=== PATIENT | male | born 1965 | race Caucasian/White ===

== ENCOUNTER 2017-05-11 05:25 | Inpatient (IN) | payer MEDICAID ==
[~2017-05-11] VITALS: Ht 175.3 cm; Wt 82.6 kg
[~2017-05-11 05:25] MED LIST: CITA20TA9 PO; LEVO100 PO; MVITFE PO; PHEN100C23 PO; RISP1 PO; SIMV-261 PO
[2017-05-11 09:53] VITALS: BP 156/96
[2017-05-11] MEDS ORDERED: HALOPERIDOL 5 MG TABLET PO PRN (10:00)
[2017-05-11] MEDS ORDERED: LORazepam 2 MG TABLET PO PRN (10:00)
[2017-05-11 10:35] VITALS: BP 124/94
[2017-05-11] MEDS: NICOTINE 21 MG/24 HOUR PATCH TD SCH (12:20)
[2017-05-11 16:36] VITALS: BP 116/85
[2017-05-11] MEDS ORDERED: PHENYTOIN SODIUM 100 MG ER CAPSULE PO SCH (17:00)
[2017-05-11] MEDS: LevETIRAcetam 500 MG TABLET PO SCH (18:18)
[2017-05-11] MEDS: ZOLPIDEM TARTRATE 10 MG TABLET PO PRN (20:23)
[2017-05-12 02:30] VITALS: BP 127/87
[2017-05-12] MEDS ORDERED: INFLUENZA VIRUS VACCINE QVS 2017-18 (3YR+)/PF 60 MCG/0.5 ML SYRINGE IM ONE (03:00)
[2017-05-12] MEDS ORDERED: PNEUMOCOCCAL VACCINE POLYVALENT 0.5 ML VIAL [PPSV23] IM ONE (03:00)
[2017-05-12] MEDS: LEVOTHYROXINE SODIUM 100 MCG TABLET PO SCH (06:37)
[2017-05-12] MEDS: LevETIRAcetam 500 MG TABLET PO SCH ×2 (08:01→16:21)
[2017-05-12] MEDS: NICOTINE 21 MG/24 HOUR PATCH TD SCH (08:01)
[2017-05-12 08:38] LABS: BASOPHILS % (AUTO) 0.5 % (0.0-2.0); EOSINOPHILS % (AUTO) 3.5 % (1.0-6.0); HEMATOCRIT 37.4 % (41-53); HEMOGLOBIN 13.3 g/dL (13.5-17.5); LYMPHOCYTES % (AUTO) 40.8 % (22.0-44.0); MEAN CORPUSCULAR HEMOGLOBIN 33.7 pg (26.0-34.0); MEAN CORPUSCULAR HGB CONC 35.5 G/dL (31.0-37.0); MEAN CORPUSCULAR VOLUME 95 fL (80-100); MONOCYTES # (AUTO) 0.3 K/uL (0.1-1.0); MONOCYTES % (AUTO) 5.5 % (2.0-9.0); NEUTROPHILS # (AUTO) 2.4 K/uL (1.8-7.7); NEUTROPHILS % (AUTO) 49.7 % (40.0-70.0); PLATELET COUNT (AUTO) 223 K/uL (150-450); RED BLOOD CELL COUNT(AUTO) 3.94 MIL/uL (4.50-5.90); RED CELL DISTRIBUTION WIDTH 14.9 % (11.5-14.5)
[2017-05-12 09:06] VITALS: BP 122/80
[2017-05-12 09:14] LABS: ALBUMIN 3.9 g/dL (3.4-5.0); BILIRUBIN,TOTAL 0.2 mg/dL (0.1-1.0); CREATININE 1.29 mg/dL (0.60-1.30); FREE T4 (FREE THYROXINE) 0.37 ng/dL (0.76-1.46); POTASSIUM 4.1 mmol/L (3.5-5.1); TOTAL PROTEIN, SERUM 7.3 g/dL (6.4-8.2)
[2017-05-12] MEDS ORDERED: MAG HYDROX/AL HYDROX/SIMETH ES 30 ML SUSPENSION UDCUP PO PRN (09:30)
[2017-05-12] MEDS ORDERED: CloNIDine HCL 0.1 MG TABLET PO PRN (09:30)
[2017-05-12] MEDS ORDERED: BENZOCAINE/MENTHOL LOZENGE MM PRN (09:30)
[2017-05-12] MEDS ORDERED: MAGNESIUM HYDROXIDE SUSPENSION 30 ML UDCUP PO PRN (09:30)
[2017-05-12] MEDS ORDERED: LOPERAMIDE HCL 2 MG CAPSULE PO PRN (09:30)
[2017-05-12] MEDS ORDERED: PETROLATUM,WHITE 71 GM JELLY TP PRN (09:30)
[2017-05-12] MEDS ORDERED: ACETAMINOPHEN 325 MG TABLET PO PRN (09:30)
[2017-05-12] MEDS ORDERED: ONDANSETRON HCL 4 MG TABLET PO PRN (09:30)
[2017-05-12] MEDS ORDERED: BACITRACIN 28.4 GM OINTMENT TP PRN (09:30)
[2017-05-12] MEDS ORDERED: ALBUTEROL SULFATE HFA 90 MCG/PUFF 8 GM INHALER IH PRN (09:30)
[2017-05-12] MEDS: CITALOPRAM HYDROBROMIDE 10 MG TABLET PO SCH (10:09)
[2017-05-12 10:17] LABS: THYROID STIMULATING HORMONE 283.94 uIU/mL (0.36-3.74)
[2017-05-12 14:36] VITALS: BP 124/83
[2017-05-12] MEDS: IBUPROFEN 600 MG TABLET PO PRN (14:37)
[2017-05-12 16:44] VITALS: BP 124/88
[2017-05-12] MEDS: RisperiDONE 2 MG TABLET PO SCH (20:31)
[2017-05-13] MEDS: LEVOTHYROXINE SODIUM 100 MCG TABLET PO SCH (06:37)
[2017-05-13 08:42] VITALS: BP 114/74
[2017-05-13] MEDS: LevETIRAcetam 500 MG TABLET PO SCH ×2 (08:53→16:31)
[2017-05-13] MEDS: CITALOPRAM HYDROBROMIDE 10 MG TABLET PO SCH (08:54)
[2017-05-13] MEDS: NICOTINE 21 MG/24 HOUR PATCH TD SCH (08:54)
[2017-05-13 11:25] VITALS: BP 124/70
[2017-05-13] MEDS: IBUPROFEN 600 MG TABLET PO PRN ×2 (11:27→17:27)
[2017-05-13 12:27] VITALS: BP 112/76
[2017-05-13 17:29] VITALS: BP 120/80
[2017-05-13] MEDS: RisperiDONE 2 MG TABLET PO SCH (20:37)
[2017-05-14 06:31] VITALS: BP 126/85
[2017-05-14] MEDS: LEVOTHYROXINE SODIUM 100 MCG TABLET PO SCH (06:39)
[2017-05-14 06:40] VITALS: BP 120/60
[2017-05-14] MEDS: IBUPROFEN 600 MG TABLET PO PRN ×2 (06:45→16:25)
[2017-05-14 07:45] VITALS: BP 113/68
[2017-05-14 08:00] VITALS: BP 103/75
[2017-05-14] MEDS: LevETIRAcetam 500 MG TABLET PO SCH ×2 (08:37→16:24)
[2017-05-14] MEDS: NICOTINE 21 MG/24 HOUR PATCH TD SCH (08:37)
[2017-05-14] MEDS: CITALOPRAM HYDROBROMIDE 10 MG TABLET PO SCH (08:38)
[2017-05-14 16:25] VITALS: BP 120/78
[2017-05-14 17:29] VITALS: BP 121/83
[2017-05-14] MEDS: RisperiDONE 2 MG TABLET PO SCH (20:08)
[2017-05-14] MEDS: ZOLPIDEM TARTRATE 10 MG TABLET PO PRN (22:17)
[2017-05-15 06:56] VITALS: BP 107/74
[2017-05-15] MEDS: LEVOTHYROXINE SODIUM 100 MCG TABLET PO SCH (06:56)
[2017-05-15 08:07] VITALS: BP 107/60
[2017-05-15] MEDS: CITALOPRAM HYDROBROMIDE 10 MG TABLET PO SCH (08:34)
[2017-05-15] MEDS: LevETIRAcetam 500 MG TABLET PO SCH ×2 (08:34→16:37)
[2017-05-15] MEDS: NICOTINE 21 MG/24 HOUR PATCH TD SCH (08:34)
[2017-05-15] MEDS: IBUPROFEN 600 MG TABLET PO PRN ×2 (09:01→16:36)
[2017-05-15 10:39] LABS: PHENYTOIN (DILANTIN) < 0.5 mcg/mL (10.0-20.0)
[2017-05-15 10:44] LABS: % IRON SATURATION 33.8 % (30-44); IRON, SERUM 87 mcg/dL (50-175); TOTAL IRON BINDING CAPACITY 257 mcg/dL (250-450)
[2017-05-15 16:35] VITALS: BP 122/88
[2017-05-15] MEDS: RisperiDONE 2 MG TABLET PO SCH (20:16)
[2017-05-16 06:17] VITALS: BP 114/77
[2017-05-16] MEDS: LEVOTHYROXINE SODIUM 100 MCG TABLET PO SCH (06:38)
[2017-05-16] MEDS: LevETIRAcetam 500 MG TABLET PO SCH ×2 (08:01→16:17)
[2017-05-16] MEDS: NICOTINE 21 MG/24 HOUR PATCH TD SCH (08:01)
[2017-05-16] MEDS: IBUPROFEN 600 MG TABLET PO PRN ×2 (08:01→16:17)
[2017-05-16] MEDS: CITALOPRAM HYDROBROMIDE 10 MG TABLET PO SCH (08:01)
[2017-05-16 08:20] VITALS: BP 122/76
[2017-05-16 08:57] LABS: FREE T4 (FREE THYROXINE) 0.52 ng/dL (0.76-1.46)
[2017-05-16 10:21] LABS: THYROID STIMULATING HORMONE 201.34 uIU/mL (0.36-3.74)
[2017-05-16 16:14] VITALS: BP 115/73
[2017-05-16] MEDS: RisperiDONE 2 MG TABLET PO SCH (20:28)
[2017-05-17 06:48] VITALS: BP 120/81
[2017-05-17] MEDS: LEVOTHYROXINE SODIUM 100 MCG TABLET PO SCH (06:55)
[2017-05-17 08:26] VITALS: BP 114/83
[2017-05-17] MEDS: CITALOPRAM HYDROBROMIDE 10 MG TABLET PO SCH (08:54)
[2017-05-17] MEDS: IBUPROFEN 600 MG TABLET PO PRN (08:54)
[2017-05-17] MEDS: LevETIRAcetam 500 MG TABLET PO SCH (08:54)
[2017-05-17] MEDS: NICOTINE 21 MG/24 HOUR PATCH TD SCH (08:55)
[2017-05-17] MEDS ORDERED: RISP2 PO (12:37)
[2017-05-17] MEDS ORDERED: CITA10TA68 PO (12:37)
== END 2017-05-17 16:20 | disposition home or self-care (01) | DRG 750 ==
LOC: B2S 10:09
DX: F25.1 Schizoaffective disorder, depressive type (principal); F79 Unspecified intellectual disabilities; R45.851 Suicidal ideations; J44.9 Chronic obstructive pulmonary disease, unspecified; E03.9 Hypothyroidism, unspecified; F17.200 Nicotine dependence, unspecified, uncomplicated; F41.9 Anxiety disorder, unspecified; G40.909 Epilepsy, unspecified, not intractable, without status epilepticus; G47.00 Insomnia, unspecified; D64.9 Anemia, unspecified; Z59.0 Homelessness; Z71.6 Tobacco abuse counseling; Z71.41 Alcohol abuse counseling and surveillance of alcoholic; Z79.899 Other long term (current) drug therapy; Z91.14 Patient's other noncompliance with medication regimen; Z88.5 Allergy status to narcotic agent; Z88.8 Allergy status to other drugs, medicaments and biological substances
CPT/HCPCS: 83540; 83550; 84436; 84439; 84443; 86592; 87081